=== PATIENT | male | born 1995 | race Caucasian/White ===

== ENCOUNTER 2017-04-24 16:32 | Emergency (ER) | payer BC ==
[2017-04-24] MEDS ORDERED: Metoclopramide IV* 5 MG/ML 2 ML VIAL IV ONE (17:40)
[2017-04-24] MEDS ORDERED: Albuterol/Ipratropium NEB.SOL* Albuterol 2.5 MG/Ipratropium 0.5 MG 3 ML INH ONE (17:40)
[2017-04-24] MEDS ORDERED: Acetaminophen TAB* 325 MG PO ONE (17:40)
[2017-04-24] MEDS ORDERED: NS 0.9% 1000 ML* 2,000 ML IV ONE (17:40)
[2017-04-24] MEDS ORDERED: Ketorolac INJ* 30 MG/ML 1 ML VIAL IV PUSH ONE (17:43)
[2017-04-24 18:56] LABS: Hematocrit 52 % (42-52); Hemoglobin 17.9 g/dl (14.0-18.0); Mean Corpuscular HGB Conc 35 g/dl (31-36); Mean Corpuscular Hemoglobin 30 pg (27-31); Mean Corpuscular Volume 86 fL (80-94); Mean Platelet Volume 9 um3 (7.4-10.4); Red Cell Distribution Width 13 % (10.5-15); White Blood Count 5.6 10^3/ul (3.5-10.8)
[2017-04-24 19:10] LABS: Albumin 5.1 g/dL (3.2-5.2); BUN/Creatinine Ratio 7.7 (8-20); C Reactive Protein 108.73 mg/L (< 5.00); Calcium 9.9 mg/dL (8.6-10.3); EGFR African American 118.3 (>60); Globulin 2.9 g/dL (2-4); Potassium 3.8 mmol/L (3.5-5.0); Total Bilirubin 0.9 mg/dL (0.2-1.0)
[2017-04-24 19:11] LABS: Mono Internal Control QC Line Present
--- NOTE | 2017-04-24 19:12 | RAD ---
INDICATION: Cough, fever and headache COMPARISON: None. TECHNIQUE: Single AP portable view of the chest was obtained. FINDINGS: Image quality is compromised due to the relative inferiority of a portable chest x-ray. The heart and mediastinum exhibit normal size and contour. The lungs are grossly clear. There is no evidence of a large pleural effusion. Visualized bones are normal for the patient's age. IMPRESSION: No radiographic evidence for acute cardiopulmonary abnormality on this portable chest x-ray.
[2017-04-24 21:37] LABS: Urine Bacteria Absent (Absent); Urine Bilirubin Negative (Negative); Urine Glucose Negative (Negative); Urine Nitrite Negative (Negative)
[2017-04-24 22:08] VITALS: BP 125/59
--- NOTE | 2017-04-30 23:17 | ED ---
Behzad Doherty Abhishek, scribed for Alexa Davies MD on 04/24/17 at 1745 . Respiratory - HPI Summary HPI Summary: This patient is a 21 year old M presenting to [facility] accompanied by female with a chief complain of non-productive coughing since a few days ago. The patient rates the pain 7/10 in severity. Symptoms aggravated by nothing. Symptoms alleviated by nothing. Patient reports fever, coughing, chest pain aggravated by cough, vomiting, abd pain since fever began (few days ago), sore throat, numbness in the tips of his toe. Pt has taken the following medication: ibuprofen and dextromethorphan. Patient denies diarrhea. Patient states that flu test came back negative flu on Tuesday at [facility]. - History of Current Complaint Chief Complaint: EDFluSymptoms Stated Complaint: GENERAL ILLNESS Hx Obtained From: Patient Onset/Duration: Gradual Onset Initial Severity: Moderate Current Severity: Moderate Pain Intensity: 7 Character: Cough (Nonproductive) Sputum Amount: None Aggravating Factor(s): Nothing Alleviating Factor(s): Nothing Associated Signs and Symptoms: Fever, Chest Pain with Cough - Allergy/Home Medications Allergies/Adverse Reactions: Allergies Allergy/AdvReac Type Severity Reaction Status Date / Time No Known Allergies Allergy Verified 04/24/17 16:45 PMH/Surg Hx/FS Hx/Imm Hx Endocrine/Hematology History: Denies: Hx Diabetes Cardiovascular History: Denies: Hx Cardiac Arrest, Hx Congenital Heart Disease, Hx Congestive Heart Failure, Hx Hypertension Infectious Disease History: No Infectious Disease History: Denies: Traveled Outside the [place] in Last 30 Days - Family History Known Family History: Positive: Other - Mylenoma (father) Negative: Diabetes - Social History Occupation: Student Alcohol Use: Occasionally Substance Use Type: Reports: None Hx Tobacco Use: No Smoking Status (MU): Never Smoked Tobacco Review of Systems Positive: Fever Eyes: Negative Positive: Sore Throat Positive: Chest Pain - aggravated by cough Positive: Cough Negative: Diarrhea Genitourinary: Negative Musculoskeletal: Negative Skin: Negative Positive: Numbness - "at the tips of toes" Psychological: Normal All Other Systems Reviewed And Are Negative: Yes Physical Exam - Summary Physical Exam Summary: VITAL SIGNS: Reviewed. GENERAL: ~Patient is a well-developed and nourished (MALE) who is lying comfortable in the stretcher. Patient is not in any acute respiratory distress. HEAD AND FACE: No signs of trauma. No ecchymosis, hematomas or skull depressions. No sinus tenderness. EYES: PERRLA, EOMI x 2, No injected conjunctiva, no nystagmus. MOUTH: Oropharynx within normal limits. CHEST: Symmetric, no tenderness at palpation LUNGS: Clear to auscultation bilaterally. No wheezing or crackles. CVS: Regular rate and rhythm, S1 and S2 present, no murmurs or gallops appreciated. ABDOMEN: Soft, non-tender. No signs of distention. No rebound no guarding, and no masses palpated. Bowel sounds are normal. EXTREMITIES: FROM in all major joints, no edema, no cyanosis or clubbing. NEURO: Alert and oriented x 3. No acute neurological deficits. Speech is normal and follows commands. SKIN: Dry and warm ENT: pharyngeal hyperemia, Hearing grossly intact. Ear canals and tympanic membranes are within normal limits. Triage Information Reviewed: Yes Vital Signs On Initial Exam: Initial Vitals Temp Pulse Resp BP Pulse Ox 98.9 F 110 18 137/89 98 04/24/17 16:40 04/24/17 16:40 04/24/17 16:40 04/24/17 16:40 04/24/17 16:40 Vital Signs Reviewed: Yes Diagnostics - Vital Signs Vital Signs Temp Pulse Resp BP Pulse Ox 04/24/17 16:40 98.9 F 110 18 137/89 98 - Laboratory Result Diagrams: 04/24/17 18:39 04/24/17 18:39 Lab Statement: Any lab studies that have been ordered have been reviewed, and results considered in the medical decision making process. - Radiology Chest X-ray Radiology Interpretation Completed By: Radiologist - CXR reveals, per radiologist, No radiographic evidence for acute cardiopulmonary abnormality on this portable chest x-ray. ED physician has reviewed this radiology report and agrees. Disposition - Course Course Of Treatment: This patient is a 21 year old M presenting to [facility] accompanied by female with a chief complaint of nonproductive coughing since few days ago. The patient rates the pain 7/10 in severity. Patient reports fever , coughing, chest pain aggravated by cough, vomiting, abd pain since fever began (few days ago), sore throat, numbness in the tips of his toe. Took ibuprofen and dextromethorphan. Patient denies diarrhea. Patient states that flu test came back negative flu on Tuesday at [facility]. CXR reveals , per radiologist, No radiographic evidence for acute cardiopulmonary abnormality on this portable chest x-ray. ED physician has reviewed this radiology report and agrees. During Reeval at 2119: Pt is feeling better and pt tolerated PO well with no vomiting, and most likely has viral illness. Pt will be recommended home rest treated at home. Pt will be recommended to take Regulon and Motrin at the recommended dosages. Dx is Virus syndrome. Patient will discharged home. - Diagnoses Provider Diagnoses: Viral syndrome Discharge - Discharge Plan Condition: Stable Disposition: HOME Prescriptions: Ibuprofen TAB* [Motrin TAB* 800 MG] 800 mg PO Q6H PRN #30 tab PRN Reason: Fever/Pain Metoclopramide TAB* [Reglan TAB*] 10 mg PO Q6H PRN #20 tab PRN Reason: Nausea/Vomiting Patient Education Materials: Viral Syndrome (ED) Referrals: [facility] - Sanjeev FLORES [Primary Care Provider] - (Follow up with [facility] as needed. Return to ED in case of worsening symptoms.) The documentation as recorded by the Behzad negro Abhishek accurately reflects the service I personally performed and the decisions made by , Alexa Davies MD.
== END 2017-04-24 22:07 | disposition home or self-care (01) ==
LOC: ED 16:32
DX: B34.9 Viral infection, unspecified (principal); R50.9 Fever, unspecified; R07.9 Chest pain, unspecified; R05 Cough; J02.9 Acute pharyngitis, unspecified
CPT/HCPCS: 36415; 71010; 80053; 81003; 81015; 83605; 85025; 86140; 86308; 87040; 87502; 87651; 96374; 99283; A9270-GY; J1885; J2765

== ENCOUNTER 2017-04-25 12:40 | Emergency (ER) | payer BC ==
[2017-04-25] MEDS ORDERED: Diphenoxylat/Atrop 2.5-0.025M* 1 TAB PO ONE (12:56)
[2017-04-25] MEDS ORDERED: NS 0.9% 1000 ML* 2,000 ML IV ONE (12:56)
[2017-04-25] MEDS ORDERED: Acetaminophen TAB* 325 MG PO ONE (12:57)
[2017-04-25] MEDS ORDERED: Ondansetron INJ* 2 MG/ML VIAL IV ONE (12:57)
[2017-04-25 13:51] LABS: Hematocrit 46 % (42-52); Mean Corpuscular HGB Conc 35 g/dl (31-36); Mean Corpuscular Hemoglobin 30 pg (27-31); Mean Corpuscular Volume 87 fL (80-94); Mean Platelet Volume 9 um3 (7.4-10.4); Red Blood Count 5.32 10^6/ul (4.0-5.4); Red Cell Distribution Width 13 % (10.5-15); White Blood Count 4.2 10^3/ul (3.5-10.8)
[2017-04-25 14:05] LABS: Albumin 4.4 g/dL (3.2-5.2); Calcium 9.4 mg/dL (8.6-10.3); EGFR African American 151.4 (>60); EGFR Non-African American 117.7 (>60); Globulin 2.5 g/dL (2-4); Potassium 3.5 mmol/L (3.5-5.0); Total Bilirubin 0.6 mg/dL (0.2-1.0); Total Protein 6.9 g/dL (6.4-8.9)
[2017-04-25 14:08] LABS: Urine Bilirubin Negative (Negative); Urine Glucose Negative (Negative); Urine Nitrite Negative (Negative)
[2017-04-25 16:04] VITALS: BP 127/75
--- NOTE | 2017-04-30 23:16 | ED ---
Rebekah Doherty Thomas, scribed for Alexa Davies MD on 04/25/17 at 1304 . HPI Febrile Illness - HPI Summary HPI Summary: The patient is a 21 y/o male who has been having a cough, vomiting, and fever for the last two days. He was evaluated to [facility] and there he was checked for flu, which was negative. He wasnt feeling better so he came here yesterday. I did evaluate the patient in the ED yesterday. He was complaining of cough, vomiting, and fever. Workup including Influenza A and B and Rapid Strep was negative. The patient was treated in the ED. He felt better and was discharged home with Reglan and Motrin. However, he was unable to fill these prescriptions. Now, he comes in to the ED complaining of diarrhea. - History of Current Complaint Time Seen by Provider: 04/25/17 12:46 Hx Obtained From: Patient Onset/Duration: Started Days Ago - 2, Still Present Timing: Constant Initial Severity: Moderate Current Severity: Moderate Aggravating Factors: Nothing Alleviating Factors: Nothing Associated Signs and Symptoms: Other: - Fever, cough, vomiting, nausea, diarrhea Related History: Similar Episode as: - last night - Allergy/Home Medications Allergies/Adverse Reactions: Allergies Allergy/AdvReac Type Severity Reaction Status Date / Time No Known Allergies Allergy Verified 04/24/17 16:45 PMH/Surg Hx/FS Hx/Imm Hx Previously Healthy: Yes Endocrine/Hematology History: Denies: Hx Diabetes Respiratory History: Denies: Hx Asthma Infectious Disease History: Denies: Traveled Outside the [place] in Last 30 Days - Family History Known Family History: Negative: Diabetes - Social History Occupation: Student Alcohol Use: Weekly Hx Substance Use: Yes Substance Use Type: Reports: Marijuana Substance Use Comment - Amount & Last Used: weekly Hx Tobacco Use: No Smoking Status (MU): Never Smoked Tobacco Review of Systems Positive: Fever Positive: Cough Positive: Vomiting, Diarrhea, Nausea All Other Systems Reviewed And Are Negative: Yes Physical Exam - Summary Physical Exam Summary: VITAL SIGNS: Reviewed. GENERAL: Patient is a well-developed and nourished male who is lying comfortable in the stretcher. Patient is not in any acute respiratory distress. HEAD AND FACE: No signs of trauma. No ecchymosis, hematomas or skull depressions. No sinus tenderness. EYES: PERRLA, EOMI x 2, No injected conjunctiva, no nystagmus. EARS: Hearing grossly intact. Ear canals and tympanic membranes are within normal limits. MOUTH: Oropharynx within normal limits. NECK: Supple, trachea is midline, no adenopathy, no JVD, no carotid bruit, no c- spine tenderness, neck with full ROM. CHEST: Symmetric, no tenderness at palpation LUNGS: Clear to auscultation bilaterally. No wheezing or crackles. CVS: Regular rate and rhythm, S1 and S2 present, no murmurs or gallops appreciated. ABDOMEN: Soft, non-tender. No signs of distention. No rebound no guarding, and no masses palpated. Bowel sounds are hyperactive. EXTREMITIES: FROM in all major joints, no edema, no cyanosis or clubbing. NEURO: Alert and oriented x 3. No acute neurological deficits. Speech is normal and follows commands. SKIN: Dry and warm Triage Information Reviewed: Yes Vital Signs Reviewed: Yes Diagnostics - Laboratory Result Diagrams: 04/25/17 13:40 04/25/17 13:40 Lab Statement: Any lab studies that have been ordered have been reviewed, and results considered in the medical decision making process. Re-Evaluation - Re-Evaluation First Eval Re-Evaluation Time: 15:29 Change: Improved Comment: The patient has not had vomiting or diarrhea in the ED. Course/Dx - Course Assessment/Plan: The patient is a 21 y/o male who has been having a cough, vomiting, and fever for the last two days. He was evaluated to [facility] and there he was checked for flu, which was negative. He wasnt feeling better so he came here yesterday. I did evaluate the patient in the ED yesterday. He was complaining of cough, vomiting, and fever. Workup including Influenza A and B and Rapid Strep was negative. The patient was treated in the ED. He felt better and was discharged home with Reglan and Motrin. However, he was unable to fill these prescriptions. Now, he comes in to the ED complaining of diarrhea. In the ED course the patient was given acetaminophen, Lomotil, Zofran , and IV fluids. Bloodwork and urinalysis were obtained. He has not had diarrhea in the ED. The patient is diagnosed with acute gastroenteritis. The patient is instructed to follow up at [facility] in three days. He is prescribed Zofran and Lomotil. Patient is agreeable with this plan. - Diagnoses Provider Diagnoses: Acute gastroenteritis Discharge - Discharge Plan Condition: Stable Disposition: HOME Prescriptions: Diphenoxylate W/ Atropine [Lomotil] 1 tab PO TID PRN #10 tab MDD 4 PRN Reason: Loose Bowel Movement Ondansetron [Zofran 8 MG Odt] 8 mg PO TID PRN #20 tab PRN Reason: Nausea/Vomiting Patient Education Materials: Gastroenteritis (ED) Referrals: [facility] - Sanjeev FLORES [Primary Care Provider] - 3 Days Additional Instructions: Follow up at [facility] in three days. Return to the emergency department for any new or worsening symptoms. The documentation as recorded by the Rebekah negro Thomas accurately reflects the service I personally performed and the decisions made by Keke cast Abdul, MD.
== END 2017-04-25 16:03 | disposition home or self-care (01) ==
LOC: ED 12:40
DX: K52.9 Noninfective gastroenteritis and colitis, unspecified (principal); R50.9 Fever, unspecified; R11.2 Nausea with vomiting, unspecified; R19.7 Diarrhea, unspecified
CPT/HCPCS: 36415; 80053; 81003; 82150; 83605; 83690; 85025; 96374; 99283; A9270-GY; J2405